=== PATIENT | male | born 1950 | race Caucasian/White ===

== ENCOUNTER 2022-06-09 05:54 | Day surgery (SDC) | payer MEDICARE ==
[2022-06-05 14:39] LABS: BASOPHILS % (AUTO) 0.3 % (0-1); EOSINOPHILS # (AUTO) 0.1 X10'3 (0-0.9); EOSINOPHILS % (AUTO) 1.1 % (0-6); LYMPHOCYTES # (AUTO) 1.7 X10'3 (1.1-4.8); LYMPHOCYTES % (AUTO) 16.4 % (21-51); MEAN CORPUSCULAR HGB CONC 32.2 g/dL (33.0-36.5); MEAN CORPUSCULAR VOLUME 65.2 FL (78-98); MEAN PLATELET VOLUME 7.3 FL (7.4-10.4); MONOCYTES # (AUTO) 0.6 X10'3 (0-0.9); NEUTROPHILS # (AUTO) 7.9 X10'3 (1.8-7.7); NEUTROPHILS % (AUTO) 76.2 % (42-75); PRE OP HEMATOCRIT 38.9 % (42.0-52.0); PRE OP HEMOGLOBIN 12.5 g/dL (14.0-17.9); PRE OP PLATELET COUNT 338 X10'3 (140-440); RED BLOOD COUNT 5.96 X10'6 (4.70-6.10); RED CELL DISTRIBUTION WIDTH 15.7 % (11.5-14.5)
[2022-06-05 14:51] LABS: ALBUMIN 3.9 G/DL (3.4-5.0); ALBUMIN/GLOBULIN RATIO 1.4 (1.1-1.5); ALKALINE PHOSPHATASE 77 IU/L (46-116); BLOOD UREA NITROGEN 18 MG/DL (7-18); CALCIUM 8.6 MG/DL (8.5-10.1); CHLORIDE 109 MMOL/L (99-107); CREATININE 1.06 MG/DL (0.60-1.10); PRE OP ALT 33 U/L (30-65); PRE OP ANION GAP 6 (8-16); PRE OP AST 19 U/L (10-37); PRE OP BILIRUB, TOTAL 1.2 MG/DL (0.0-1.0); PRE OP GLUCOSE 120 MG/DL (70-104); PRE OP POTASSIUM 3.6 MMOL/L (3.4-5.1); PRE OP SODIUM 144 MMOL/L (135-145); TOTAL CARBON DIOXIDE 29.4 MMOL/L (24-32); TOTAL PROTEIN 6.7 G/DL (6.4-8.2); eGFR 69 ML/MIN
[2022-06-05 16:34] LABS: PLATELET ESTIMATE NORMAL
[2022-06-05 16:35] LABS: ANISOCYTOSIS 2+; MICROCYTOSIS 2+; POIKILOCYTOSIS 2+
[~2022-06-09] VITALS: Ht 170.2 cm; Wt 69.7 kg
[~2022-06-09 05:54] MED LIST: AMLO-339 PO; CETI-90 PO; FLUC150T54 PO; FLUT16SP26 NAS; clindamycin-Cleocin 900mg/D5W 50 ML IV ONE; famotidine 20mg tablet PO ONE; ringers solution, lacted 1,000 ML IV SCH
[2022-06-09] MEDS ORDERED: BUPIVAcaine/PF 2.5mg/ml (0.25%) 10ml vial ONE (06:40)
[2022-06-09] MEDS ORDERED: LIDOcaine 0.5% (5mg/ml) 50ml vial ONE (07:26)
[2022-06-09 07:27] VITALS: BP 129/84
[2022-06-09 07:31] VITALS: BP 129/84
[2022-06-09] MEDS ORDERED: midazolam 1 mg/ML 2ml injection ONE (08:58)
[2022-06-09] MEDS ORDERED: fentaNYL/PF 50MCG/1 ML 2ML syringe ONE (08:58)
[2022-06-09] MEDS ORDERED: propofol inj 20 ML IV ONE (09:26)
[2022-06-09] MEDS ORDERED: labetalol 20mg/4ml (5mg/ml) syringe IV PRN (09:35)
[2022-06-09] MEDS ORDERED: morphine 4 MG/ML inj SYRINge IV PRN (09:35)
[2022-06-09] MEDS ORDERED: morphine 2 MG/ML inj. syringe IV PRN (09:35)
[2022-06-09] MEDS ORDERED: ondansetron/PF 4mg/2ml inj IV PRN (09:35)
[2022-06-09] MEDS ORDERED: meperidine/PF 25mg/ml syringe IV PRN ×3 (09:35)
[2022-06-09] MEDS ORDERED: hydrALAZINE 20mg/ml inj. IV PRN (09:35)
[2022-06-09] MEDS ORDERED: proCHLORperazine 10 MG/2 ml inj IV PRN (09:35)
[2022-06-09] MEDS ORDERED: acetaminophen 1,000mg/100ml IV 100 ML IV PRN (09:35)
[2022-06-09] MEDS ORDERED: ketorolac tromethamine 15mg/ml inj. IV ONE (09:35)
[2022-06-09] MEDS ORDERED: ringers solution, lacted 1,000 ML IV SCH (09:35)
[2022-06-09 09:50] VITALS: BP 125/72
--- NOTE | 2022-06-09 09:50 | NUR ---
PT ARRIVED TO RR VIA GURNEY ACCOMPANIED BY DR VALENTINE-ANESTHESIA REPORT GIVEN, VSS, DENIES PAIN, RIGHT HAND WRAPPED-FINGERS PINK AND WARM, ABLE TO MOVE, DEEP BLOCK WORKING, ICE ON EXTREMITY.
[2022-06-09 10:00] VITALS: BP 115/74
[2022-06-09 10:10] VITALS: BP 124/74
[2022-06-09 10:20] VITALS: BP 122/72
--- NOTE | 2022-06-09 10:40 | NUR ---
PT UP AND DRESSED, DENIES PAIN, VSS, DRSG-CDI, NO CHANGES IN CSM, D/C INSTRUCTIONS GIVEN TO PT-ALL QUESTIONS ANSWERED, TAKEN VIA W/C TO [facility] FOR TRANSPORT HOME.
== END 2022-06-09 10:40 | disposition home or self-care (01) ==
LOC: PAS 05:54
PROVIDERS: ATTEND Orthopaedic Surgery Hand Surgery
DX: M19.041 Primary osteoarthritis, right hand (principal); I10 Essential (primary) hypertension; Z79.899 Other long term (current) drug therapy; Z98.890 Other specified postprocedural states; Z98.41 Cataract extraction status, right eye
CPT/HCPCS: 26860; 80053; 82948; 85025; 93005; C1713; J2250; J2704; J3010; J3490; J7030; J7120; Z7506; Z7512; 85008; A4215; A4618; A7000; C1769